=== PATIENT | female | born 1950 | race African-American/Black ===

== ENCOUNTER 2018-08-30 12:04 | Inpatient (IN) ==
[2018-08-30] MEDS ORDERED: methylPREDNISolone SOD SUC 125 MG/2 ML VIAL IV STA (12:35)
[2018-08-30 12:56] LABS: Basophils % 0.3 % (0.0-0.8); Eosinophils # 0.1 10*3/uL (0.0-0.87); Hematocrit 33.3 VOL% (35.7-47.0); Hemoglobin 10.8 GM/DL (12.0-16.0); Immature Granulocytes % 0.1 %; Immature Granulocytes Absolute 0.01 #; Lymphocytes # 1.3 10*3/uL (1.4-4.0); Lymphocytes % 19.3 % (21.3-54.2); Mean Corpuscular HGB Conc 32.4 GM/DL (32-36); Mean Corpuscular Hemoglobin 30 PG (27-34); Mean Corpuscular Volume 92.5 FL (87-102); Monocytes # 0.4 10*3/uL (0.11-0.8); Monocytes % 5.2 % (1.7-12.7); Neutrophils # 4.9 10*3/uL (1.4-7.4); Neutrophils % 74.1 % (38.7-73.9); Platelet Count 235 T/CUMM (130-400); White Blood Count 6.7 T/CUMM (4-12)
[2018-08-30] MEDS ORDERED: ALBUTEROL 2.5 MG/3 ML NEB RESP TX SCH (13:00)
[2018-08-30 13:39] LABS: Bilirubin,Total 0.6 MG/DL (0.2-1.0); Calcium 8.3 MG/DL (8.5-10.1); Osmolality,Calculated 281.1 MOS/KG (273-304); Potassium 3.8 MMOL/L (3.5-5.1); Total Protein 6.7 G/DL (6.4-8.3)
[2018-08-30] MEDS ORDERED: PROMETHAZINE 25 MG/1 ML VIAL IM PRN (16:04)
[2018-08-30] MEDS ORDERED: MEROPENEM 1,000 MG in SODIUM CHLORIDE 0.9% 100 ML IV STA (16:04)
[2018-08-30] MEDS ORDERED: ONDANSETRON 4 MG/2 ML VIAL IV PRN (16:04)
[2018-08-30] MEDS ORDERED: NON-FORMULARY MEDICATION (Albuterol Sulfate [Ventolin Hfa] 2 PUFF) INH PRN (16:06)
[2018-08-30] MEDS ORDERED: ALBUTEROL 1.25 MG/3 ML NEB RESP TX PRN (16:06)
[2018-08-30] MEDS ORDERED: ALBUTEROL 2.5 MG/3 ML NEB RESP TX PRN (16:07)
[2018-08-30] MEDS ORDERED: PANTOPRAZOLE 40 MG TABLET PO SCH (16:30)
[2018-08-30] MEDS: ENOXAPARIN 40 MG/0.4 ML SYRINGE SUBCUT SCH (17:56)
[2018-08-30] MEDS: PANTOPRAZOLE 40 MG TABLET PO SCH (17:56)
[2018-08-30] MEDS: methylPREDNISolone SOD SUC 125 MG/2 ML VIAL IV SCH (17:57)
[2018-08-30] MEDS: LEVOFLOXACIN INJ 750 MG in PREMIX 1 EACH IV SCH (18:37)
[2018-08-30] MEDS: ALBUTEROL/IPRATROPIUM 3 ML NEB RESP TX SCH (19:07)
[2018-08-30] MEDS: guaiFENesin/DM ER 600-30 MG TABLET PO SCH (21:30)
[2018-08-31] MEDS: methylPREDNISolone SOD SUC 125 MG/2 ML VIAL IV SCH ×3 (00:05→17:53)
[2018-08-31] MEDS: ACETAMINOPHEN 325 MG TABLET PO PRN (00:06)
[2018-08-31] MEDS: ALBUTEROL/IPRATROPIUM 3 ML NEB RESP TX SCH ×4 (00:36→19:28)
[2018-08-31 04:44] LABS: Basophils % 0.1 % (0.0-0.8); Hematocrit 31.5 VOL% (35.7-47.0); Hemoglobin 10.1 GM/DL (12.0-16.0); Immature Granulocytes % 0.1 %; Immature Granulocytes Absolute 0.01 #; Lymphocytes # 0.4 10*3/uL (1.4-4.0); Lymphocytes % 5.4 % (21.3-54.2); Mean Corpuscular HGB Conc 32.1 GM/DL (32-36); Mean Corpuscular Hemoglobin 29 PG (27-34); Mean Corpuscular Volume 90.5 FL (87-102); Mean Platelet Volume 11.8 FL (9.6-12.0); Monocytes # 0.1 10*3/uL (0.11-0.8); Monocytes % 0.7 % (1.7-12.7); Neutrophils # 6.5 10*3/uL (1.4-7.4); Neutrophils % 93.7 % (38.7-73.9); Platelet Count 224 T/CUMM (130-400); Red Blood Count 3.48 MC/CUMM (3.8-5.5); Red Cell Distribution Width 12.2 % (9.3-17.3); White Blood Count 6.9 T/CUMM (4-12)
[2018-08-31 05:11] LABS: Albumin 2.7 G/DL (3.4-5.0); Bilirubin,Total 0.6 MG/DL (0.2-1.0); Calcium 8.8 MG/DL (8.5-10.1); Osmolality,Calculated 284.1 MOS/KG (273-304); Potassium 3.1 MMOL/L (3.5-5.1); Total Protein 6.8 G/DL (6.4-8.3)
[2018-08-31 05:43] LABS: Band Neutrophils 1 % (0-10); Hypochromasia 1+; Lymphocytes 3 % (20-55); Segmented Neutrophils 95 % (50-85); Total Cells Counted 100
[2018-08-31 05:44] LABS: Microcytosis Slight; Platelet Estimate Normal
[2018-08-31] MEDS: ROFLUMILAST 500 MCG TABLET PO SCH (09:55)
[2018-08-31] MEDS: POTASSIUM CHLORIDE 20 MEQ TABLET PO SCH ×4 (09:55→17:55)
[2018-08-31] MEDS: PRAVASTATIN 40 MG TABLET PO SCH (09:55)
[2018-08-31] MEDS: TAMOXIFEN 10 MG TABLET PO SCH (09:55)
[2018-08-31] MEDS: BENAZEPRIL 10 MG TABLET PO SCH (09:55)
[2018-08-31] MEDS: ASPIRIN EC 325 MG TABLET PO SCH (09:55)
[2018-08-31] MEDS: PANTOPRAZOLE 40 MG TABLET PO SCH (09:56)
[2018-08-31] MEDS: guaiFENesin/DM ER 600-30 MG TABLET PO SCH ×2 (10:01→21:31)
[2018-08-31] MEDS: ENOXAPARIN 40 MG/0.4 ML SYRINGE SUBCUT SCH (17:55)
[2018-08-31] MEDS: LEVOFLOXACIN INJ 750 MG in PREMIX 1 EACH IV SCH (18:08)
[2018-09-01] MEDS: ALBUTEROL/IPRATROPIUM 3 ML NEB RESP TX SCH ×4 (01:03→19:04)
[2018-09-01] MEDS: methylPREDNISolone SOD SUC 125 MG/2 ML VIAL IV SCH (01:24)
[2018-09-01] MEDS: ACETAMINOPHEN 325 MG TABLET PO PRN ×2 (03:53→13:03)
[2018-09-01] MEDS: NON-FORMULARY MEDICATION (Fluticasone/Umeclidin/Vilanter [Trelegy Ellipta 100-62.5-25] 1 P INH SCH (08:08)
[2018-09-01] MEDS: methylPREDNISolone SOD SUC 40 MG/1 ML VIAL IV SCH ×2 (08:47→20:32)
[2018-09-01] MEDS: POTASSIUM CHLORIDE 20 MEQ TABLET PO SCH (09:41)
[2018-09-01] MEDS: ASPIRIN EC 325 MG TABLET PO SCH (09:41)
[2018-09-01] MEDS: ROFLUMILAST 500 MCG TABLET PO SCH (09:41)
[2018-09-01] MEDS: TAMOXIFEN 10 MG TABLET PO SCH (09:41)
[2018-09-01] MEDS: PRAVASTATIN 40 MG TABLET PO SCH (09:41)
[2018-09-01] MEDS: PANTOPRAZOLE 40 MG TABLET PO SCH (09:41)
[2018-09-01] MEDS: BUMETANIDE 1 MG TABLET PO SCH (09:41)
[2018-09-01] MEDS: BENAZEPRIL 10 MG TABLET PO SCH (09:42)
[2018-09-01] MEDS: guaiFENesin/DM ER 600-30 MG TABLET PO SCH ×2 (09:42→20:35)
[2018-09-01] MEDS ORDERED: ALBUTEROL/IPRATROPIUM 3 ML NEB RESP TX PRN (12:55)
[2018-09-01] MEDS: ENOXAPARIN 40 MG/0.4 ML SYRINGE SUBCUT SCH (16:55)
[2018-09-01] MEDS: LEVOFLOXACIN INJ 750 MG in PREMIX 1 EACH IV SCH (16:58)
[2018-09-02] MEDS: ALBUTEROL/IPRATROPIUM 3 ML NEB RESP TX SCH ×4 (01:01→20:04)
[2018-09-02 04:46] LABS: Hemoglobin 10.3 GM/DL (12.0-16.0); Immature Granulocytes % 0.5 %; Immature Granulocytes Absolute 0.07 #; Lymphocytes # 0.6 10*3/uL (1.4-4.0); Lymphocytes % 4.9 % (21.3-54.2); Mean Corpuscular HGB Conc 31.2 GM/DL (32-36); Mean Corpuscular Hemoglobin 29 PG (27-34); Mean Corpuscular Volume 92.7 FL (87-102); Mean Platelet Volume 11.2 FL (9.6-12.0); Monocytes # 0.3 10*3/uL (0.11-0.8); Monocytes % 2.2 % (1.7-12.7); Neutrophils # 11.9 10*3/uL (1.4-7.4); Neutrophils % 92.4 % (38.7-73.9); Platelet Count 266 T/CUMM (130-400); Red Blood Count 3.56 MC/CUMM (3.8-5.5); Red Cell Distribution Width 12.1 % (9.3-17.3); White Blood Count 12.9 T/CUMM (4-12)
[2018-09-02 05:04] LABS: Calcium 7.3 MG/DL (8.5-10.1); Osmolality,Calculated 285.1 MOS/KG (273-304); Potassium 4.2 MMOL/L (3.5-5.1)
[2018-09-02 05:30] LABS: Lymphocytes 4 % (20-55); Platelet Estimate Normal; Segmented Neutrophils 95 % (50-85); Total Cells Counted 100
[2018-09-02] MEDS: ASPIRIN EC 325 MG TABLET PO SCH (09:07)
[2018-09-02] MEDS: ROFLUMILAST 500 MCG TABLET PO SCH (09:07)
[2018-09-02] MEDS: guaiFENesin/DM ER 600-30 MG TABLET PO SCH ×2 (09:07→21:09)
[2018-09-02] MEDS: POTASSIUM CHLORIDE 20 MEQ TABLET PO SCH (09:07)
[2018-09-02] MEDS: methylPREDNISolone SOD SUC 40 MG/1 ML VIAL IV SCH ×2 (09:08→20:32)
[2018-09-02] MEDS: PANTOPRAZOLE 40 MG TABLET PO SCH (09:08)
[2018-09-02] MEDS: NON-FORMULARY MEDICATION (Fluticasone/Umeclidin/Vilanter [Trelegy Ellipta 100-62.5-25] 1 P INH SCH (09:08)
[2018-09-02] MEDS: TAMOXIFEN 10 MG TABLET PO SCH (09:10)
[2018-09-02] MEDS: BENAZEPRIL 10 MG TABLET PO SCH (09:10)
[2018-09-02] MEDS: PRAVASTATIN 40 MG TABLET PO SCH (09:10)
[2018-09-02] MEDS: LEVOFLOXACIN INJ 750 MG in PREMIX 1 EACH IV SCH (16:25)
[2018-09-02] MEDS: ENOXAPARIN 40 MG/0.4 ML SYRINGE SUBCUT SCH (21:09)
[2018-09-03] MEDS: ALBUTEROL/IPRATROPIUM 3 ML NEB RESP TX SCH ×4 (01:43→19:51)
[2018-09-03 05:08] LABS: Hematocrit 33.2 VOL% (35.7-47.0); Hemoglobin 10.7 GM/DL (12.0-16.0); Immature Granulocytes % 0.3 %; Immature Granulocytes Absolute 0.03 #; Lymphocytes # 0.7 10*3/uL (1.4-4.0); Lymphocytes % 7.8 % (21.3-54.2); Mean Corpuscular HGB Conc 32.2 GM/DL (32-36); Mean Corpuscular Hemoglobin 30 PG (27-34); Mean Corpuscular Volume 92.5 FL (87-102); Mean Platelet Volume 11.4 FL (9.6-12.0); Monocytes # 0.3 10*3/uL (0.11-0.8); Monocytes % 2.8 % (1.7-12.7); Neutrophils # 8.3 10*3/uL (1.4-7.4); Neutrophils % 89.1 % (38.7-73.9); Platelet Count 263 T/CUMM (130-400); Red Blood Count 3.59 MC/CUMM (3.8-5.5); Red Cell Distribution Width 12.1 % (9.3-17.3); White Blood Count 9.3 T/CUMM (4-12)
[2018-09-03 08:33] LABS: PT Patient Result 10.4 SECS; Partial Thromboplastin Time 22.4 SECS (0-40)
[2018-09-03] MEDS: ASPIRIN EC 325 MG TABLET PO SCH (09:10)
[2018-09-03] MEDS: TAMOXIFEN 10 MG TABLET PO SCH (09:10)
[2018-09-03] MEDS: PRAVASTATIN 40 MG TABLET PO SCH (09:10)
[2018-09-03] MEDS: BENAZEPRIL 10 MG TABLET PO SCH (09:10)
[2018-09-03] MEDS: BUMETANIDE 1 MG TABLET PO SCH (09:10)
[2018-09-03] MEDS: POTASSIUM CHLORIDE 20 MEQ TABLET PO SCH (09:10)
[2018-09-03] MEDS: guaiFENesin/DM ER 600-30 MG TABLET PO SCH ×2 (09:10→20:52)
[2018-09-03] MEDS: ROFLUMILAST 500 MCG TABLET PO SCH (09:10)
[2018-09-03] MEDS: CALCIUM (CARBONATE)/VITAMIN D 600 MG-400 UNIT TABLET PO SCH ×2 (09:10→20:52)
[2018-09-03] MEDS: PANTOPRAZOLE 40 MG TABLET PO SCH (09:11)
[2018-09-03] MEDS: methylPREDNISolone SOD SUC 40 MG/1 ML VIAL IV SCH ×2 (09:11→21:46)
[2018-09-03] MEDS: LEVOFLOXACIN INJ 750 MG in PREMIX 1 EACH IV SCH (09:13)
[2018-09-03] MEDS: NON-FORMULARY MEDICATION (Fluticasone/Umeclidin/Vilanter [Trelegy Ellipta 100-62.5-25] 1 P INH SCH (09:13)
[2018-09-03] MEDS: ENOXAPARIN 40 MG/0.4 ML SYRINGE SUBCUT SCH (20:53)
[2018-09-04] MEDS: ALBUTEROL/IPRATROPIUM 3 ML NEB RESP TX SCH ×4 (00:20→19:21)
[2018-09-04 04:46] LABS: Hematocrit 34.6 VOL% (35.7-47.0); Hemoglobin 11.2 GM/DL (12.0-16.0); Immature Granulocytes % 0.6 %; Immature Granulocytes Absolute 0.06 #; Lymphocytes # 0.9 10*3/uL (1.4-4.0); Lymphocytes % 9.5 % (21.3-54.2); Mean Corpuscular HGB Conc 32.4 GM/DL (32-36); Mean Corpuscular Hemoglobin 30 PG (27-34); Mean Corpuscular Volume 92.3 FL (87-102); Mean Platelet Volume 11.3 FL (9.6-12.0); Monocytes # 0.2 10*3/uL (0.11-0.8); Neutrophils # 8.2 10*3/uL (1.4-7.4); Neutrophils % 87.9 % (38.7-73.9); Platelet Count 272 T/CUMM (130-400); Red Blood Count 3.75 MC/CUMM (3.8-5.5); Red Cell Distribution Width 12.1 % (9.3-17.3); White Blood Count 9.3 T/CUMM (4-12)
[2018-09-04 05:10] LABS: Calcium 8.5 MG/DL (8.5-10.1); Osmolality,Calculated 283.4 MOS/KG (273-304); Potassium 4.8 MMOL/L (3.5-5.1)
[2018-09-04] MEDS ORDERED: PROMETHAZINE 25 MG/1 ML VIAL IM ONE (07:00)
[2018-09-04] MEDS ORDERED: MIDAZOLAM 2 MG/2 ML VIAL ONE (07:30)
[2018-09-04] MEDS ORDERED: LIDOCAINE 2% 20 ML VIAL RESP TX ONE (07:30)
[2018-09-04] MEDS ORDERED: LIDOCAINE 2% VISCOUS 100 ML BOTTLE SWISH/SPIT ONE (07:30)
[2018-09-04] MEDS ORDERED: MIDAZOLAM 2 MG/2 ML VIAL IV ONE (07:30)
[2018-09-04] MEDS ORDERED: LIDOCAINE 1% 20 ML VIAL MISC INJ ONE (07:30)
[2018-09-04] MEDS: guaiFENesin/DM ER 600-30 MG TABLET PO SCH ×2 (09:58→21:29)
[2018-09-04] MEDS: CALCIUM (CARBONATE)/VITAMIN D 600 MG-400 UNIT TABLET PO SCH ×2 (09:58→21:29)
[2018-09-04] MEDS: PRAVASTATIN 40 MG TABLET PO SCH (09:59)
[2018-09-04] MEDS: ASPIRIN EC 325 MG TABLET PO SCH (09:59)
[2018-09-04] MEDS: TAMOXIFEN 10 MG TABLET PO SCH (09:59)
[2018-09-04] MEDS: ROFLUMILAST 500 MCG TABLET PO SCH (09:59)
[2018-09-04] MEDS: PANTOPRAZOLE 40 MG TABLET PO SCH (09:59)
[2018-09-04] MEDS: NON-FORMULARY MEDICATION (Fluticasone/Umeclidin/Vilanter [Trelegy Ellipta 100-62.5-25] 1 P INH SCH (10:00)
[2018-09-04] MEDS: BENAZEPRIL 10 MG TABLET PO SCH (10:00)
[2018-09-04] MEDS: POTASSIUM CHLORIDE 20 MEQ TABLET PO SCH (10:00)
[2018-09-04] MEDS: methylPREDNISolone SOD SUC 40 MG/1 ML VIAL IV SCH ×2 (10:04→21:29)
[2018-09-04] MEDS: LEVOFLOXACIN INJ 750 MG in PREMIX 1 EACH IV SCH (10:05)
[2018-09-04] MEDS: ENOXAPARIN 40 MG/0.4 ML SYRINGE SUBCUT SCH (21:29)
[2018-09-05] MEDS: ALBUTEROL/IPRATROPIUM 3 ML NEB RESP TX SCH ×3 (00:59→13:05)
[2018-09-05 04:51] LABS: Hematocrit 34.7 VOL% (35.7-47.0); Hemoglobin 10.9 GM/DL (12.0-16.0); Immature Granulocytes % 0.4 %; Immature Granulocytes Absolute 0.04 #; Lymphocytes # 0.8 10*3/uL (1.4-4.0); Lymphocytes % 6.8 % (21.3-54.2); Mean Corpuscular HGB Conc 31.4 GM/DL (32-36); Mean Corpuscular Hemoglobin 29 PG (27-34); Mean Corpuscular Volume 92.5 FL (87-102); Mean Platelet Volume 11.5 FL (9.6-12.0); Monocytes # 0.2 10*3/uL (0.11-0.8); Monocytes % 1.8 % (1.7-12.7); Platelet Count 272 T/CUMM (130-400); Red Blood Count 3.75 MC/CUMM (3.8-5.5); Red Cell Distribution Width 12.2 % (9.3-17.3)
[2018-09-05 05:15] LABS: Calcium 8.9 MG/DL (8.5-10.1); Osmolality,Calculated 281.5 MOS/KG (273-304); Potassium 4.7 MMOL/L (3.5-5.1)
[2018-09-05 05:18] LABS: Lymphocytes 6 % (20-55); Segmented Neutrophils 93 % (50-85); Total Cells Counted 100
[2018-09-05 05:23] LABS: Hypochromasia 1+; Microcytosis Slight; Platelet Estimate Normal
[2018-09-05] MEDS: BENAZEPRIL 10 MG TABLET PO SCH (09:48)
[2018-09-05] MEDS: CALCIUM (CARBONATE)/VITAMIN D 600 MG-400 UNIT TABLET PO SCH (09:48)
[2018-09-05] MEDS: BUMETANIDE 1 MG TABLET PO SCH (09:48)
[2018-09-05] MEDS: TAMOXIFEN 10 MG TABLET PO SCH (09:49)
[2018-09-05] MEDS: ROFLUMILAST 500 MCG TABLET PO SCH (09:49)
[2018-09-05] MEDS: PANTOPRAZOLE 40 MG TABLET PO SCH (09:49)
[2018-09-05] MEDS: PRAVASTATIN 40 MG TABLET PO SCH (09:49)
[2018-09-05] MEDS: POTASSIUM CHLORIDE 20 MEQ TABLET PO SCH (09:49)
[2018-09-05] MEDS: guaiFENesin/DM ER 600-30 MG TABLET PO SCH (09:49)
[2018-09-05] MEDS: ASPIRIN EC 325 MG TABLET PO SCH (09:49)
[2018-09-05] MEDS: NON-FORMULARY MEDICATION (Fluticasone/Umeclidin/Vilanter [Trelegy Ellipta 100-62.5-25] 1 P INH SCH (09:49)
[2018-09-05] MEDS: LEVOFLOXACIN INJ 750 MG in PREMIX 1 EACH IV SCH (09:51)
[2018-09-05] MEDS: methylPREDNISolone SOD SUC 40 MG/1 ML VIAL IV SCH (09:51)
[2018-09-05 12:26] VITALS: BP 113/79
== END 2018-09-05 13:37 | disposition home or self-care (01) | DRG 178 ==
LOC: N.ED 12:04 → N.EDINP 16:04 → SUATTDRO 16:04 → N.2E 16:56
PROVIDERS: ADMIT Family Medicine; ATTEND Internal Medicine
PROC: BRONCHB (2018-09-04 07:35)